=== PATIENT | male | born 1960 | race Caucasian/White ===

== ENCOUNTER 2024-05-06 13:14 | Inpatient (IN) | payer OTHER ==
[2024-05-06 16:00] VITALS: BMI 16.5
[2024-05-06] MEDS ORDERED: BENZONATATE 200 MG CAPSULE PO PRN (16:18)
[2024-05-06] MEDS ORDERED: P-EPHED 60MG/TRIPROLIDI 2.5MG TABLET PO PRN (16:18)
[2024-05-06] MEDS ORDERED: POLYETHYLENE GLYCOL (HEALTHYLAX) 3350 17 GM PACKET PO PRN (16:18)
[2024-05-06] MEDS ORDERED: NALOXONE (NARCAN) HCL 4 MG/0.1 ML SPRAY NS PRN (16:18)
[2024-05-06] MEDS ORDERED: BENZOCAINE/MENTHOL (CHLORASEPTIC ) LOZENGE MM PRN (16:18)
[2024-05-06] MEDS ORDERED: LOPERAMIDE HCL 2 MG CAPSULE PO PRN (16:18)
[2024-05-06] MEDS ORDERED: BISACODYL 5 MG TABLET.DR (FP) PO PRN (16:18)
[2024-05-06] MEDS ORDERED: NICOTINE POLACRILEX 2 MG GUM BUC PRN (16:18)
[2024-05-06] MEDS ORDERED: MAGNESIUM HYDROX 2400MG/30ML ORAL SUSPENSION 30 ML CUP PO PRN (16:18)
[2024-05-06] MEDS ORDERED: ACETAMINOPHEN 325 MG TABLET (FP) PO PRN (16:18)
[2024-05-06] MEDS ORDERED: DOCUSATE SODIUM 100 MG CAPSULE (FP) PO PRN (16:18)
[2024-05-06] MEDS ORDERED: NICOTINE POLACRILEX 2 MG LOZENGE BC PRN (16:18)
[2024-05-06] MEDS ORDERED: guaiFENesin 600 MG TABLET.ER (FP) PO PRN (16:18)
[2024-05-06] MEDS ORDERED: IBUPROFEN 400 MG TABLET (FP) PO PRN (16:18)
[2024-05-06] MEDS: THIAMINE 100 MG TABLET PO SCH (21:15)
[2024-05-06] MEDS: MELATONIN 5 MG TABLETS PO SCH (21:15)
[2024-05-06] MEDS: TUBERCULIN PPD 5 TU/0.1ML SYRINGE (IN PATIENT USE ONLY) ID ONE (21:16)
[2024-05-06 22:47] LABS: EPI CELLS 2 /uL (0-25.1); HYALINE CASTS 1 /uL (0-3.1); URINE APPEARANCE CLEAR; URINE BACTERIA 17 /uL (0-1359); URINE BILIRUBIN NEGATIVE (NEGATIVE); URINE COLOR YELLOW; URINE GLUCOSE (UA) NEGATIVE (NEGATIVE); URINE KETONE TRACE (NEGATIVE); URINE LEUK ESTERASE NEGATIVE (NEGATIVE); URINE NITRITE NEGATIVE (NEGATIVE); URINE PROTEIN NEGATIVE (NEGATIVE); URINE RBC 27 /uL (0-23.9); URINE UROBILINOGEN 0.2 mg/dL (0.2-1.0); URINE WBC 7 /uL (0-25.8)
[2024-05-07 09:12] LABS: POTASSIUM 4.5 mmol/L (3.5-5.1)
[2024-05-07 09:16] LABS: CALCIUM 8.7 mg/dL (8.5-10.1)
[2024-05-07 09:17] LABS: ALBUMIN 3.1 g/dl (3.4-5.0); BLOOD UREA NITROGEN 20.4 mg/dL (7-18)
[2024-05-07 09:20] LABS: CREATININE 0.9 mg/dL (0.55-1.3)
[2024-05-07 09:22] LABS: BILIRUBIN,TOTAL 0.3 mg/dL (0.2-1); TOT PROT 6.2 g/dl (6.4-8.2)
[2024-05-07 09:23] LABS: HEMATOCRIT 34.1 % (35.4-49); HEMOGLOBIN 11.2 GM/dL (11.7-16.9); MCH 27.8 pg (25.7-33.7); MCHC 32.8 g/dl (32.0-35.9); MEAN CELL VOLUME 84.6 fl (80-96); MEAN PLT VOLUME 8.1 fl (7.5-11.1); PLATELET COUNT 255 10^3/uL (134-434); RBC 4.03 M/mm3 (4.00-5.60); RDW 14.9 % (11.9-15.9); WHITE BLOOD COUNT 8.7 K/mm3 (4.0-10.0)
[2024-05-07] MEDS: methaDONE HCL 10 MG TABLET PO SCH (10:23)
[2024-05-07] MEDS: PRENATAL VITAMINS W/ FOLIC ACID TABLET (FP) PO SCH (10:37)
[2024-05-07] MEDS: QUEtiapine FUMARATE 100 MG TABLET (FP) PO SCH (21:13)
[2024-05-08] MEDS: IBUPROFEN 600 MG TABLET (FP) PO PRN (21:43)
[2024-05-09] MEDS: MAG HYDROX/AL HYDROX/SIMETH 30 ML UNIT-DOSE CUP PO PRN (12:45)
[2024-05-10] MEDS: BISMUTH SUBSALICYLATE 262 MG/15 ML BTL PO PRN (17:55)
[2024-05-12] MEDS: BACLOFEN 10 MG TABLET (FP) PO SCH (21:22)
[2024-05-13 11:32] LABS: INR 0.95 (0.83-1.09); PROTHROMBIN TIME (PATIENT) 10.9 SEC (9.7-13.0)
[2024-05-13 14:13] LABS: MAGNESIUM 1.9 mg/dL (1.8-2.4)
[2024-05-13 14:16] LABS: PHOSPHOROUS 3.8 mg/dL (2.5-4.9)
[2024-05-14] MEDS ORDERED: QUEtiapine FUMARATE 50 MG TABLET ONE (20:28)
[2024-05-15] MEDS: CHOLECALCIFEROL (VIT D3) 1,000 UNIT (25 MCG) TABLET PO SCH (12:26)
[2024-05-15] MEDS ORDERED: QUEtiapine FUMARATE 50 MG TABLET ONE (20:26)
[2024-05-19 06:26] VITALS: BP 101/65; PULSE 75; RESP 20; TEMP 97.8
[2024-05-19] MEDS: NALOXONE (NYS OPIOID OVERDOSE PROGRAM) 4 MG/0.1 ML SPRAY NS SCH (09:22)
== END 2024-05-19 09:37 | disposition home or self-care (01) | DRG 895 ==
LOC: YASAS 13:14 → Y3NR 16:34 → Y3W 05-09 13:19
PROVIDERS: ADMIT Psychiatry & Neurology Pain Medicine; ATTEND Family Medicine Addiction Medicine
PROC: HZ42ZZZ Group Counseling for Substance Abuse Treatment, Cognitive-Behavioral (ICD-10-PCS; principal; 2024-05-06)
DX: F14.20 Cocaine dependence, uncomplicated (principal); F11.20 Opioid dependence, uncomplicated; F19.282 Other psychoactive substance dependence with psychoactive substance-induced sleep disorder; F17.210 Nicotine dependence, cigarettes, uncomplicated; F19.24 Other psychoactive substance dependence with psychoactive substance-induced mood disorder; M54.50 Low back pain, unspecified; G89.29 Other chronic pain; E55.9 Vitamin D deficiency, unspecified; R31.29 Other microscopic hematuria
CPT/HCPCS: 36415; 80053; 80305; 80307; 81003; 82652; 83735; 84100; 85027; 85610; 86780; 87811; 93005; 93010; J0475

== ENCOUNTER 2024-08-03 14:05 | Inpatient (IN) | payer OTHER ==
[2024-08-03 14:39] VITALS: BMI 16.5
[2024-08-03] MEDS ORDERED: hydrOXYzine PAMOATE 25 MG CAPSULE (FP) PO PRN (15:08)
[2024-08-03] MEDS ORDERED: NICOTINE POLACRILEX 2 MG GUM BUC PRN (15:08)
[2024-08-03] MEDS ORDERED: IBUPROFEN 400 MG TABLET (FP) PO PRN (15:08)
[2024-08-03] MEDS ORDERED: BENZOCAINE/MENTHOL (CHLORASEPTIC ) LOZENGE MM PRN (15:08)
[2024-08-03] MEDS ORDERED: NALOXONE (NARCAN) HCL 4 MG/0.1 ML SPRAY NS PRN (15:08)
[2024-08-03] MEDS ORDERED: diazePAM 5 MG TABLET PO PRN (15:08)
[2024-08-03] MEDS ORDERED: LOPERAMIDE HCL 2 MG CAPSULE PO PRN (15:08)
[2024-08-03] MEDS ORDERED: ACETAMINOPHEN 325 MG TABLET (FP) PO PRN (15:08)
[2024-08-03] MEDS ORDERED: guaiFENesin 600 MG TABLET.ER (FP) PO PRN (15:08)
[2024-08-03] MEDS ORDERED: POLYETHYLENE GLYCOL (HEALTHYLAX) 3350 17 GM PACKET PO PRN (15:08)
[2024-08-03] MEDS ORDERED: MAGNESIUM HYDROX 2400MG/30ML ORAL SUSPENSION 30 ML CUP PO PRN (15:08)
[2024-08-03] MEDS ORDERED: BENZONATATE 200 MG CAPSULE PO PRN (15:08)
[2024-08-03] MEDS ORDERED: DICYCLOMINE HCL 10 MG CAPSULE PO PRN (15:08)
[2024-08-03] MEDS ORDERED: MAG HYDROX/AL HYDROX/SIMETH 30 ML UNIT-DOSE CUP PO PRN (15:08)
[2024-08-03] MEDS ORDERED: ONDANSETRON *ODT* 4 MG TABLET SL PRN (15:08)
[2024-08-03] MEDS: diazePAM 5 MG TABLET PO SCH (17:01)
[2024-08-03] MEDS: cloNIDine HCL 0.1 MG TABLET PO SCH (17:10)
[2024-08-03] MEDS ORDERED: MIRTAZAPINE 15 MG TABLET (FP) PO SCH (22:00)
[2024-08-03] MEDS ORDERED: QUEtiapine FUMARATE 100 MG TABLET (FP) PO SCH ×2 (22:00)
[2024-08-03] MEDS: MELATONIN 5 MG TABLETS PO SCH (22:11)
[2024-08-03] MEDS: QUEtiapine FUMARATE 50 MG TABLET PO SCH (22:11)
[2024-08-03] MEDS: THIAMINE 100 MG TABLET PO SCH (22:12)
[2024-08-04] MEDS ORDERED: methaDONE HCL 10 MG TABLET PO SCH ×2 (10:30)
[2024-08-04] MEDS: PRENATAL VITAMINS W/ FOLIC ACID TABLET (FP) PO SCH (10:47)
[2024-08-04] MEDS: methaDONE HCL 10 MG TABLET PO ONE (10:49)
[2024-08-04 11:29] LABS: POTASSIUM 4.6 mmol/L (3.5-5.1)
[2024-08-04 11:31] LABS: HEMATOCRIT 41.5 % (40.1-51.0); MCHC 31.3 g/dl (32.3-36.5); MEAN CELL VOLUME 85.4 fl (79.0-92.2); MEAN PLT VOLUME 11.6 fl (9.4-12.4); PLATELET COUNT 201 x10^3/uL (163-337); RDW 14.4 % (12.2-16.4)
[2024-08-04 11:36] LABS: CALCIUM 9.5 mg/dL (8.5-10.1)
[2024-08-04 11:37] LABS: BLOOD UREA NITROGEN 21.5 mg/dL (7-18)
[2024-08-04 11:40] LABS: CREATININE 1.2 mg/dL (0.55-1.3)
[2024-08-04 11:41] LABS: BILIRUBIN,TOTAL 0.4 mg/dL (0.2-1)
[2024-08-04 11:42] LABS: TOT PROT 7.5 g/dl (6.4-8.2)
[2024-08-05] MEDS ORDERED: cloNIDine HCL 0.1 MG TABLET PO PRN
[2024-08-05] MEDS: diazePAM 5 MG TABLET PO SCH (05:24)
[2024-08-05] MEDS: methaDONE HCL 10 MG TABLET PO ONE (09:36)
[2024-08-05] MEDS: BISMUTH SUBSALICYLATE 262 MG/15 ML BTL PO PRN (23:27)
[2024-08-06] MEDS: diazePAM 5 MG TABLET PO SCH (05:18)
[2024-08-06] MEDS: methaDONE HCL 10 MG TABLET PO ONE (09:52)
[2024-08-06] MEDS: METHOCARBAMOL 500 MG TABLET PO PRN (22:00)
[2024-08-07] MEDS: diazePAM 5 MG TABLET PO ONE (05:56)
[2024-08-07] MEDS: methaDONE HCL 10 MG TABLET PO ONE (09:39)
[2024-08-07] MEDS: IBUPROFEN 600 MG TABLET (FP) PO PRN (21:52)
[2024-08-08 09:06] VITALS: BP 103/62; PULSE 65; RESP 18; TEMP 97.8
[2024-08-08] MEDS: methaDONE HCL 10 MG TABLET PO ONE (09:37)
== END 2024-08-08 09:42 | disposition home or self-care (01) | DRG 897 ==
LOC: YASAS 14:05 → Y3N 15:45
PROVIDERS: ADMIT Allergy & Immunology; ATTEND Allergy & Immunology
PROC: HZ2ZZZZ Detoxification Services for Substance Abuse Treatment (ICD-10-PCS; principal; 2024-08-03)
DX: F10.230 Alcohol dependence with withdrawal, uncomplicated (principal); F11.20 Opioid dependence, uncomplicated; F14.20 Cocaine dependence, uncomplicated; F17.210 Nicotine dependence, cigarettes, uncomplicated; F31.9 Bipolar disorder, unspecified; F19.24 Other psychoactive substance dependence with psychoactive substance-induced mood disorder; G47.00 Insomnia, unspecified; I10 Essential (primary) hypertension
CPT/HCPCS: 36415; 80053; 80305; 80307; 85027; 86780; 93005; 93010

== ENCOUNTER 2024-11-04 14:12 | Inpatient (IN) | payer OTHER ==
[2024-11-04 14:55] VITALS: BMI 17.6
[2024-11-04] MEDS ORDERED: POLYETHYLENE GLYCOL (HEALTHYLAX) 3350 17 GM PACKET PO PRN (15:10)
[2024-11-04] MEDS ORDERED: IBUPROFEN 400 MG TABLET (FP) PO PRN (15:10)
[2024-11-04] MEDS ORDERED: guaiFENesin 600 MG TABLET.ER (FP) PO PRN (15:10)
[2024-11-04] MEDS ORDERED: IBUPROFEN 600 MG TABLET (FP) PO PRN (15:10)
[2024-11-04] MEDS ORDERED: ACETAMINOPHEN 325 MG TABLET (FP) PO PRN (15:10)
[2024-11-04] MEDS ORDERED: NICOTINE POLACRILEX 2 MG GUM BUC PRN (15:10)
[2024-11-04] MEDS ORDERED: NALOXONE (NARCAN) HCL 4 MG/0.1 ML SPRAY NS PRN (15:10)
[2024-11-04] MEDS ORDERED: BENZOCAINE/MENTHOL (CHLORASEPTIC ) LOZENGE MM PRN (15:10)
[2024-11-04] MEDS ORDERED: BENZONATATE 200 MG CAPSULE PO PRN (15:10)
[2024-11-04] MEDS ORDERED: NICOTINE POLACRILEX 2 MG LOZENGE BC PRN (15:10)
[2024-11-04] MEDS ORDERED: MAG HYDROX/AL HYDROX/SIMETH 30 ML UNIT-DOSE CUP PO PRN (15:10)
[2024-11-04] MEDS ORDERED: MAGNESIUM HYDROX 2400MG/30ML ORAL SUSPENSION 30 ML CUP PO PRN (15:10)
[2024-11-04] MEDS ORDERED: BISMUTH SUBSALICYLATE 262 MG/15 ML BTL PO PRN (15:10)
[2024-11-04] MEDS: THIAMINE 100 MG TABLET PO SCH (23:16)
[2024-11-04] MEDS: MELATONIN 5 MG TABLETS PO SCH (23:16)
[2024-11-05] MEDS: LOPERAMIDE HCL 2 MG CAPSULE PO PRN (10:18)
[2024-11-05] MEDS: ONDANSETRON *ODT* 4 MG TABLET SL PRN (10:19)
[2024-11-05] MEDS: PRENATAL VITAMINS W/ FOLIC ACID TABLET (FP) PO SCH (10:19)
[2024-11-05 15:12] LABS: MCHC 32.0 g/dl (32.3-36.5); MEAN CELL VOLUME 85.4 fl (79.0-92.2); MEAN PLT VOLUME 10.9 fl (9.4-12.4); RDW 14.1 % (12.2-16.4)
[2024-11-05 15:26] LABS: CO2 30 mmol/L (21-32); GLUCOSE,RANDOM 97 mg/dL (74-106)
[2024-11-05 15:28] LABS: CREATININE 0.9 mg/dL (0.55-1.3); SGOT/AST 19 U/L (15-37); SGPT/ALT 12 U/L (13-61)
[2024-11-05 15:30] LABS: TOT PROT 6.3 g/dl (6.4-8.2)
[2024-11-05 15:31] LABS: ALK PHOS 73 U/L (45-117)
[2024-11-05] MEDS: QUEtiapine FUMARATE 100 MG TABLET (FP) PO SCH (22:24)
[2024-11-08 08:57] VITALS: BP 122/76; PULSE 62; RESP 15; TEMP 97.8
== END 2024-11-08 10:17 | disposition home or self-care (01) | DRG 897 ==
LOC: YASAS 14:12 → Y6N 18:06
PROVIDERS: ADMIT Neuromusculoskeletal Medicine & OMM; ATTEND Allergy & Immunology
PROC: HZ2ZZZZ Detoxification Services for Substance Abuse Treatment (ICD-10-PCS; principal; 2024-11-04)
DX: F10.230 Alcohol dependence with withdrawal, uncomplicated (principal); F11.20 Opioid dependence, uncomplicated; F14.20 Cocaine dependence, uncomplicated; F19.282 Other psychoactive substance dependence with psychoactive substance-induced sleep disorder; F17.210 Nicotine dependence, cigarettes, uncomplicated; F31.9 Bipolar disorder, unspecified; M54.50 Low back pain, unspecified; G89.29 Other chronic pain
CPT/HCPCS: 36415; 80053; 80305; 80307; 85027; 86780; Q0162